=== PATIENT | male | born 1980 | race Caucasian/White ===

== ENCOUNTER 2017-09-02 10:02 | Emergency (ER) | payer SELFPAY ==
[2017-09-02 10:03] VITALS: BP 156/94; PULSE 70; RESP 18; TEMP 36.7; O2SAT 99; BMI 38.2
--- NOTE | 2017-09-02 10:18 | ED.VISSUMM ---
- ER Visit Summary Date of Service: 09/02/17 Chief Complaint: Upper abdominal pain History of Present Illness: The patient is a 37 M has medical history of hypertension for which he is currently not taking medications and depression anxiety. Patient states that last week he had a brief episode and last night he developed upper abdominal pain primarily epigastric and left upper quadrant. He denies any nausea, vomiting or diarrhea. He denies any melena. He denies any abdominal trauma. He states he has never had any abdominal surgery. Specifically makes the pain better or worse. He denies any weight loss. It is not associated with any chest pain or shortness of breath. He states he rarely drinks but he smokes excessively up to 5 packs a day. Physical Examination: Well-appearing young male. Vital signs are stable and afebrile. He seems anxious. H EENT exam unremarkable and strong smell tobacco. Neck nontender no lymphadenopathy. Lungs clear to auscultation bilaterally. Heart regular rhythm no murmur rate about 70. Abdomen is soft, nontender, nondistended normal bowel sounds without peritoneal signs. No hernias or masses. No signs of obstruction. Patient is complaining of pain but has really no reproducible or worsening tenderness on exam. He has no Choi sign. He has no McBurney's point or right lower quadrant tenderness. He is moving all 4 extremities. They are neurovascularly intact. Back exam is nontender. Neurologically is awake and alert with no focal motor deficits. Test Results: CBC normal. BMP normal. Liver enzymes normal. Lipase normal. Emergency Department Course and Treatment: Patient treated with p.o. Pepcid and GI cocktail. Abdominal labs been obtained. Treatment Plan: Repeat exam he feels slightly better after the GI cocktail. Abdomen is currently benign without peritoneal signs or any reproducible tenderness. He and I discussed about smoking sensation. Being started on Prilosec. Following up with not getting better. Disposition: Discharge Impression: Acute upper abdominal pain of uncertain etiology Gastritis Tobacco abuse This note was generated with sigmacare dictation software. It may contain incorrect words, spelling, and punctuation that were not noted in review of the chart prior to signing ED Disposition - Plan for ED Patient: Disposition: Home or Assisted Living Chief Complaint: Abd Pain Instructions: ED Abdominal Pain Unkn Cause Prescriptions: Omeprazole [Prilosec] 20 mg PO BID #30 cap Referrals: John Gómez MD [STAFF PHYSICIAN] - 1 Week if not improving Additional Instructions: Absolutely need to decrease and eventually stop smoking. Labs are normal today. This may or may not be secondary to gastritis which is inflammation of the stomach lining. Prilosec 1 pill twice daily this should improve your symptoms of secondary to gastritis. Call follow-up if not improving. Return to the ER feeling worse or vomiting blood or black or bloody stools.
--- NOTE | 2017-09-02 10:22 | ED.DEP ---
ED Disposition - Plan for ED Patient: Disposition: Home or Assisted Living Chief Complaint: Abd Pain Instructions: ED Abdominal Pain Unkn Cause Prescriptions: Omeprazole [Prilosec] 20 mg PO BID #30 cap Referrals: John Gómez MD [STAFF PHYSICIAN] - 1 Week if not improving Additional Instructions: Absolutely need to decrease and eventually stop smoking. Labs are normal today. This may or may not be secondary to gastritis which is inflammation of the stomach lining. Prilosec 1 pill twice daily this should improve your symptoms of secondary to gastritis. Call follow-up if not improving. Return to the ER feeling worse or vomiting blood or black or bloody stools.
[2017-09-02] MEDS: Famotidine 20 MG Tablet 40 MG PO (10:27)
[2017-09-02 10:36] LABS: Absolute Lymphocyte Count 2.03 X10^3/ul (0.83-4.51); Absolute Neutrophil Count 6.9 X10^3/uL (2.0-7.7); Basophil# 0.06 X10^3/uL; Basophil% 0.6 % (0-1); Eosinophil# 0.21 X10^3/uL; Eosinophils% 2.1 % (0-5); Hematocrit 49.8 % (40-54); Hemoglobin 16.8 g/dl (13.0-16.5); Lymphocyte # 2.03 X10^3/ul (4.0); Lymphocyte % 19.9 % (19-41); Mean Corp Hgb Conc 33.7 g/gl (32-36); Mean Corpuscular Hgb 30.6 pg (27.0-32.0); Mean Corpuscular Volume 90.7 fL (80-94); Mean Platelet Vol. 9.6 fl (6.2-12.0); Monocyte# 1.02 X10^3/uL; Neutrophil # 6.85 X10^3/uL (2.7-7.7); Neutrophil % 67.1 % (47-70); Platelet Count 333 K/mm3 (150-450); RBC Distribution Width SD 43.3 fl (35.1-43.9); Red Blood Count 5.49 M/mm3 (4.6-6.2); White Blood Count 10.2 K/mm3 (4.4-11.0)
[2017-09-02 10:37] LABS: POSITIVE COUNT NO; POSITIVE DIFFERENTIAL NO; POSITIVE MORPHOLOGY NO
[2017-09-02 10:48] LABS: AST(SGOT) 18 U/L (15-37); Alanine Aminotransfer ALT/SGPT 41 U/L (16-61); Albumin, Serum 3.7 g/dL (3.2-5.0); Alkaline Phosphatase 44 U/L (45-117); Anion Gap 4 (5-15); BUN 16 mg/dL (7-18); BUN/Creat Ratio 14.3 RATIO (10-20); Calcium,Total 9.7 mg/dL (8.5-10.1); Chloride 107 mmol/L (98-107); Creatinine, Serum 1.12 mg/dL (0.70-1.30); EST Glomerular Filtration Rate 79 mL/min (>60); Est Glom Filt Rate - Afr Amer 96 mL/min (>60); Estimated Creatinine Clearance 104.04 ml/min; Globulin 3.9 g/dL (2.2-4.2); Glucose 122 mg/dL (74-106); Lipase 169 U/L (73-393); Potassium 4.3 mmol/L (3.5-5.1); Protein, Total 7.6 g/dL (6.4-8.2); Sodium Level 144 mmol/L (136-145)
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
== END 2017-09-02 11:26 | disposition home or self-care (01) ==
LOC: ED 10:38
PROVIDERS: Emergency Provider Emergency Medicine; Family Provider Family Medicine; PCP Family Medicine
DX: R10.12 Left upper quadrant pain (principal); R10.13 Epigastric pain; K29.70 Gastritis, unspecified, without bleeding; I10 Essential (primary) hypertension; F17.200 Nicotine dependence, unspecified, uncomplicated
CPT/HCPCS: 80048; 80076; 83690; 85025; 99283; A4216

== ENCOUNTER 2020-08-29 00:36 | Emergency (ER) | payer MEDICAID, SELFPAY ==
[2020-08-29 00:38] VITALS: BP 155/100; PULSE 83; RESP 18; TEMP 36.9; O2SAT 97; BMI 46.4
--- NOTE | 2020-08-29 01:13 | EKG12_ITS ---
Test Reason : CP Blood Pressure : / mmHG Vent. Rate : 078 BPM Atrial Rate : 078 BPM P-R Int : 152 ms QRS Dur : 080 ms QT Int : 384 ms P-R-T Axes : 000 039 022 degrees QTc Int : 437 ms Normal sinus rhythm Normal ECG Confirmed by ZONIA ANDREWS, NASIR ([id number]), advertising editor NAREN JACKMAN ([id number]) on 09/01/2020 1:08:14 PM Referred By: DIEUDONNE Confirmed By:NASIR BRAR MD
--- NOTE | 2020-08-29 01:13 | RAD_ITS ---
STUDY: X-RAY CHEST REASON FOR EXAM: Male, 40 years old. chest pain TECHNIQUE: 1 view COMPARISON: None. FINDINGS: The cardiac silhouette is top normal. Costophrenic angles are sharp. Lungs are clear. The trachea is midline. There is no pneumothorax. The bones are grossly intact. RAD/Chest 1 View (Portable) IMPRESSION: Borderline cardiomegaly. No acute pulmonary process. Electronically Signed: Javier Swain MD at 2:17 EDT Tel , Service support ,
--- NOTE | 2020-08-29 01:14 | EDS_ITS ---
HPI History of Present Illness Chief Complaint: General Illness Informant: patient Narrative Narrative: Patient brought in by his because of excessive sleepiness. They both agree that he has had excessive sleepiness during the day for the past 2 to 3 weeks but today he slept all day with very little time awake. Patient states he feels tired right now but otherwise has no symptoms. No recent illness. He recently had a home sleep study that was interpreted by his doctor as severe sleep apnea. He has not begun any treatment yet because they want to run more tests on him. He states chronically he has chest tightness every time he wakes up that last for 30-60 minutes and then goes away and currently is gone. He states he has terrible migraines that also occur every time he goes to sleep. That is gone currently. [facility] Medical History Anxiety Depression GERD (gastroesophageal reflux disease) Hypertension Sleep apnea Home Medications citalopram 20 mg PO DAILY 12/13/15 [History Last Taken Unknown] meloxicam [Mobic] 15 mg PO DAILY 12/13/15 [History Last Taken Unknown] omeprazole 60 mg PO DAILY 12/13/15 [History Last Taken Unknown] omeprazole 20 mg PO BID #30 cap 09/02/17 [Rx Last Taken Unknown] aripiprazole 5 mg PO DAILY 08/29/20 [History Last Taken Unknown] atenolol 50 mg PO DAILY 08/29/20 [History Last Taken Unknown] baclofen 10 mg PO TID 08/29/20 [History Last Taken Unknown] fluoxetine 40 mg PO DAILY 08/29/20 [History Last Taken Unknown] hydrochlorothiazide 25 mg PO DAILY 08/29/20 [History Last Taken Unknown] verapamil 120 mg PO DAILY 08/29/20 [History Last Taken Unknown] Allergy/AdvReac Type Severity Reaction Status Date / Time No Known Allergies Allergy Verified 08/29/20 00:43 Social History (Updated 08/29/20 @ 01:[address] Nasir Crump MD) Smoking Status: Heavy Smoker (>10/day) alcohol intake: current alcohol intake frequency: holidays/special occasions only substance use type: does not use ROS ROS ED Constitutional Constitutional ED: Reports fatigue; Denies chills or fever(s) Eyes Eyes: Denies change in vision or diplopia ENT ENT ED: Denies rhinorrhea or sore throat Cardiovascular Cardiovascular: Denies chest pain or palpitations Respiratory/Chest Respiratory/Chest: Denies cough or dyspnea Gastrointestinal Gastrointestinal: Denies abdominal pain, diarrhea, nausea or vomiting Genitourinary Genitourinary ED: Denies dysuria or hematuria Musculoskeletal Musculoskeletal: Denies back pain or neck pain Integumentary Denies abscess or rash Neurologic Neurologic: Denies headache(s), paresthesias or weakness Psychiatric Psychiatric: Denies anxiety or suicidal thoughts EXAM Physical Exam Const Vital Signs: 08/29/20 00:38 08/29/20 00:44 Temperature 98.5 F Temperature Source Oral Pulse Rate 83 Respiratory Rate 18 Respiratory Effort Normal Respiratory Pattern Normal Blood Pressure 155/100 H Blood Pressure Mean 118 Pulse Ox 97 Oxygen Delivery Method Room Air Positive well nourished, well developed and obese General Appearance ED: well developed and NAD Nutritional Appearance: obese HEENT Reports moist mucous membranes normocephalic and atraumatic Eyes PERRL and EOMs intact bilaterally Neck full ROM and supple Resp normal respiratory effort and clear to auscultation bilaterally Cardio regular rate, regular rhythm and no murmurs GI non-tender and non-distended Auscultation: normoactive bowel sounds Palpation: soft Back/Spine no CVA tenderness General Back: other FROM Extremity normal to inspection General Extremety ED: Negative for edema, pulses abnormal or tenderness General Extremity: Negative for edema or pulses abnormal Neuro oriented x3, CN's II-XII intact bilaterally and no sensory deficits noted Sensorium / Orientation: awake and alert Motor Exam: strength 5/5 throughout Skin no rashes or lesions noted and no wounds MDM MDM MDM Narrative Medical decision making narrative: Patient's medical screening exam is benign, I offered to do a work-up with some screening labs, troponin, EKG, chest x-ray, urinalysis. All of that is unremarkable. Patient was reassured, I suspect his symptoms are related to his sleep apnea which is obviously been a chronic problem and he just had it diagnosed, he states he is following up for more testing and then treatment. I do not think he needs any other emergent testing at this time. Lab Data Attestation: I reviewed the patient's lab results. Labs: Laboratory Results - last 24 hr 08/29/20 08/29/20 08/29/20 00:40 00:40 02:55 WBC 10.5 RBC 5.24 Hgb 15.7 Hct 48.3 MCV 92.2 MCH 30.0 MCHC 32.5 RDW Std Deviation 43.4 RDW Coeff of Sugey 12.8 Plt Count 338 MPV 9.8 Immature Gran % (Auto) 0.600 Neut % (Auto) 64.4 Lymph % (Auto) 22.4 [place] % (Auto) 9.4 Eos % (Auto) 2.4 Baso % (Auto) 0.8 Absolute Neuts (auto) 6.8 Absolute Lymphs (auto) 2.35 Nucleated RBC % 0 Sodium 141 Potassium 4.0 Chloride 108 H Carbon Dioxide 31.0 Anion Gap 2 L BUN 15 Creatinine 1.02 Estim Creat Clear Calc 107.78 Est GFR (MDRD) Af Amer 105 Est GFR (MDRD) Non-Af 87 BUN/Creatinine Ratio 14.7 Glucose 104 Calcium 8.6 Troponin I High Sens 8.6 Urine Color Yellow Urine Clarity Clear Urine pH 7.0 Ur Specific [place] 1.020 Urine Protein Negative Urine Glucose (UA) Normal Urine Ketones Negative Urine Occult Blood Negative Urine Nitrite Negative Urine Bilirubin Negative Urine Urobilinogen 1 H Ur Leukocyte Esterase Negative Urine RBC 0 SEEN Urine WBC 0 SEEN Ur Squamous Epith Cells 0 SEEN Urine Bacteria 1+ Urine Mucus 0 SEEN Radiography Chest X-Ray - ED: 1 View, Read by ED Physician and No Acute Disease Diagnostic Testing: Radiology Impression Chest X-Ray 08/29/20 01:13 IMPRESSION: Borderline cardiomegaly. No acute pulmonary process. Electronically Signed: Javier Swain MD at 2:17 EDT Tel , Service support , EKG Initial EKG: Attestation: I personally reviewed and interpreted this EKG as follows: Interpretation: Sinus Rhythm and No Acute Injury Pattern Comments: normal EKG Discharge Plan Triage Chief Complaint: General Illness ED Provider: Nasir Crump Dx/Rx/DC Orders Clinical Impression: Fatigue, CHRIS (obstructive sleep apnea) Instructions: ED Sleep Apnea, Obstructive Prescriptions: No Action meloxicam [Mobic] 15 MG tablet 15 mg PO DAILY RF: 0 citalopram 20 MG tablet 20 mg PO DAILY RF: 0 omeprazole 20 MG capsule 60 mg PO DAILY RF: 0 omeprazole 20 MG capsule 20 mg PO BID Qty: 30 RF: 0 baclofen 10 mg tablet 10 mg PO TID RF: 0 hydrochlorothiazide 25 mg tablet 25 mg PO DAILY RF: 0 fluoxetine 20 mg capsule 40 mg PO DAILY RF: 0 atenolol 50 mg tablet 50 mg PO DAILY RF: 0 verapamil 120 mg capsule,ext rel. pellets 24 hr 120 mg PO DAILY RF: 0 aripiprazole 5 mg tablet 5 mg PO DAILY RF: 0 Primary Care Provider: Kd Nieto Referrals: Kd Nieto MD [Primary Care Provider] - As soon as possible Disposition Disposition: Home, Self Care
[2020-08-29 01:40] LABS: Absolute Lymphocyte Count 2.35 X10^3/uL (0.83-4.51); Absolute Neutrophil Count 6.8 X10^3/uL (2.0-7.7); Basophil# 0.08 X10^3/uL; Basophil% 0.8 % (0-1); Eosinophil# 0.25 X10^3/uL; Eosinophils% 2.4 % (0-5); Hematocrit 48.3 % (40-54); Hemoglobin 15.7 g/dL (13.0-16.5); Lymphocyte # 2.35 X10^3/ul (0.83-4.51); Lymphocyte % 22.4 % (19-41); Mean Corp Hgb Conc 32.5 g/dL (32-36); Mean Corpuscular Volume 92.2 fL (80-94); Mean Platelet Vol. 9.8 fl (6.2-12.0); Monocyte# 0.98 X10^3/uL; Monocyte% 9.4 % (0-10); NRBC Flagged by Analyzer 0 % (0-5); Neutrophil # 6.76 X10^3/uL (2.7-7.7); Neutrophil % 64.4 % (47-70); Platelet Count 338 K/mm3 (150-450); RBC Distribution Width CV 12.8 % (11.6-14.6); RBC Distribution Width SD 43.4 fl (35.1-43.9); Red Blood Count 5.24 M/mm3 (4.6-6.2); White Blood Count 10.5 K/mm3 (4.4-11.0)
[2020-08-29 01:57] LABS: Anion Gap 2 (5-15); BUN 15 mg/dL (7-18); BUN/Creat Ratio 14.7 RATIO (10-20); Calcium,Total 8.6 mg/dL (8.5-10.1); Chloride 108 mmol/L (98-107); Creatinine, Serum 1.02 mg/dL (0.70-1.30); EST Glomerular Filtration Rate 87 mL/min (>60); Est Glom Filt Rate - Afr Amer 105 mL/min (>60); Estimated Creatinine Clearance 107.78 ml/min; Glucose 104 mg/dL (74-106); Sodium Level 141 mmol/L (136-145); Troponin-I HS 8.6 pg/mL (3.0-78.5)
[2020-08-29 02:59] LABS: Mucous, Urine 0 SEEN /hpf (<or=2+); Red Blood Cells-Urine 0 SEEN /hpf (0-5); Squamous Epithelial Cells - UA 0 SEEN /hpf (0-5); White Blood Cells 0 SEEN /hpf (0-5)
[2020-08-29 03:00] LABS: Color, Urine Yellow (Yellow); Glucose, Dipstick Normal (Normal); Ketone-Dipstick Negative (Negative); Leukocyte Esterase-Dipstick Negative /ul (Negative); Nitrite-Dipstick Negative (Negative); Occult Blood-Urine Negative /ul (Negative); Protein-Dipstick Negative (Negative); Urine Bilirubin Dipstick Negative (Negative); Urine Clarity Clear (Clear); Urine Urobilinogen 1 mg/dl (Normal)
[2020-08-29 03:06] LABS: Bacteria 1+ /hpf (None Seen)
[2020-08-29 03:47] VITALS: BP 142/88; PULSE 61; RESP 21; O2SAT 96
== END 2020-08-29 03:47 | disposition home or self-care (01) ==
PROVIDERS: Emergency Provider Emergency Medicine; PCP Family Medicine
DX: G47.33 Obstructive sleep apnea (adult) (pediatric) (principal); R53.83 Other fatigue; F17.200 Nicotine dependence, unspecified, uncomplicated; I10 Essential (primary) hypertension; K21.9 Gastro-esophageal reflux disease without esophagitis; Z79.899 Other long term (current) drug therapy
CPT/HCPCS: 71045; 80048; 81001; 84484; 85025; 93005; 99284; A4216

== ENCOUNTER 2024-03-12 08:56 | Outpatient (RCR) | payer MEDICAID, SELFPAY ==
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
--- NOTE | 2024-03-13 16:18 | HP.OTFCE.D ---
FCE D/C Summary Discharge text: MINH OLIVIA was seen for a one time visit for an FCE on 03/12/24 and is discharged.
== END 2024-03-12 19:00 | disposition home or self-care (01) ==
LOC: OT 08:56
PROVIDERS: PCP Physician Assistant Medical; Referring Provider Physician Assistant Medical; Visit Provider Physician Assistant Medical
DX: R09.02 Hypoxemia (principal); J43.2 Centrilobular emphysema; M47.816 Spondylosis without myelopathy or radiculopathy, lumbar region; M54.50 Low back pain, unspecified; G89.29 Other chronic pain
CPT/HCPCS: 97750

== ENCOUNTER → 2024-11-28 | Outpatient (CLI) | payer MEDICAID, SELFPAY ==
[2024-11-28 18:01] LABS: AST(SGOT) 23 U/L (<=37); Alanine Aminotransfer ALT/SGPT 23 U/L (<=46); Albumin, Serum 3.9 g/dL (3.5-5.0); Alkaline Phosphatase 37 U/L (40-129); Anion Gap 12 (5-15); BUN 14 mg/dL (4-19); BUN/Creat Ratio 13.7 RATIO (10-20); Calcium,Total 9.4 mg/dL (7.6-11.0); Carbon Dioxide 25.9 mmol/L (21.0-32.0); Chloride 103 mmol/L (98-108); Cholesterol 139 mg/dL (<=200); Globulin 3.2 g/dL (2.2-4.2); Glucose 113 mg/dL (70-99); Low Density Lipoprotein Calc. 70 mg/dL; Potassium 3.2 mmol/L (3.3-5.1); Triglycerides 173 mg/dL; Very Low Density Lipoprotein 35 mg/dL (5-40); cholesterol:hdl ratio screen 4.04
== END | disposition home or self-care (01) ==
LOC: VSLAB 11:29
PROVIDERS: PCP Nurse Practitioner Family; Visit Provider Nurse Practitioner Family
DX: E03.9 Hypothyroidism, unspecified (principal); E11.9 Type 2 diabetes mellitus without complications; E78.5 Hyperlipidemia, unspecified
CPT/HCPCS: 36415; 80053; 80061; 83036; 84439; 84443